=== PATIENT | female | born 1960 ===

== ENCOUNTER 2016-10-30 07:28 | Day surgery (SDC) | payer OTHER ==
[2016-10-30 07:51] VITALS: BMI 24.5
[2016-10-30] MEDS ORDERED: ePHEDrine 50 mg/ml Inj ONE (08:50)
[2016-10-30] MEDS ORDERED: Propofol 10 mg/ml Inj (20 ML) ONE ×2 (08:50→08:57)
[2016-10-30 09:23] VITALS: TEMP 97.8
[2016-10-30 10:12] VITALS: RESP 14
[2016-10-30 10:21] VITALS: BP 121/84; PULSE 60; O2SAT 99
== END 2016-10-30 10:15 | disposition home or self-care (01) ==
LOC: C.ENDO 07:28
PROVIDERS: ATTEND Internal Medicine Gastroenterology
DX: Z12.11 Encounter for screening for malignant neoplasm of colon (principal)
CPT/HCPCS: 45378; 84703; J2704

== ENCOUNTER 2018-07-29 12:31 | Outpatient (CLI) | payer OTHER | END 2018-07-29 12:32 | disposition home or self-care (01) | LOC: C.PAT 12:31 | DX: D25.9 Leiomyoma of uterus, unspecified (principal) ==

== ENCOUNTER 2018-07-30 06:23 | Day surgery (SDC) | payer OTHER ==
[2018-07-29 11:08] VITALS: BMI 25.8
[2018-07-30] MEDS ORDERED: Midazolam 2 MG/2 ML VIAL ONE (07:37)
[2018-07-30] MEDS ORDERED: Propofol 10 mg/ml Inj (20 ML) ONE (07:37)
[2018-07-30] MEDS ORDERED: ceFOXitin IV 1 gm/100 ml in NS 2 GM/200 ML BAG ONE (07:45)
[2018-07-30] MEDS ORDERED: HYDROmorphone 0.5 mg/0.5 ml ISec IVP PRN (08:11)
[2018-07-30 09:48] VITALS: BP 128/76; PULSE 64; RESP 20; TEMP 96.8; O2SAT 99
--- NOTE | 2018-07-30 19:25 | OP ---
PROCEDURE DATE: 07/30/2018 PREOPERATIVE DIAGNOSES: Fibroid uterus, postmenopausal bleeding, endometrial polyp. POSTOPERATIVE DIAGNOSES: Fibroid uterus, postmenopausal bleeding, endometrial polyp. PROCEDURES: Hysteroscopy, hysteroscopic myomectomy, dilatation and curettage of the uterus. FINDINGS: A 1-cm right uterine wall endometrial polyp/myoma. The remainder of the endometrial cavity is atrophic. There are some filmy adhesions in the endocervical canal, which were lysed. SURGEON: Sonia Pope MD. ANESTHESIA: General. ESTIMATED BLOOD LOSS: Less than 1 mL. COMPLICATIONS: Nil. INDICATION FOR PROCEDURE: After the risks, benefits, and alternatives of the planned procedures including but not limited to infection, hemorrhage, deep vein thrombosis, atelectasis, pneumonia, pulmonary embolism, damage to the bladder, damage to the ureter, renal insufficiency, renal failure, wound infection, wound dehiscence, incisional hernia, keloid formation, damage to large and small intestines, damage to inferior vena cava and aorta requiring extensive repair, anesthesia complications, electrolyte imbalance, possibility of , fluid overload, cerebral edema, embolism, and other complications that were discussed but are not listed above had been explained to the patient and all her questions answered, informed consent was obtained and risk of recurrence was also discussed with the patient. DESCRIPTION OF PROCEDURE: The patient was taken to the operating room in a stable condition. Under a suitable level of general anesthesia, she was prepped and draped in a sterile fashion after having been placed in a dorsal lithotomy position. Bladder was emptied by straight catheterization. Examination under anesthesia revealed a normal size uterus, anteverted with no adnexal masses. A weighted speculum was inserted into the vagina. The anterior lip of the cervix was grasped using a single-tooth tenaculum. An Endocervical curettage was performed and scant tissue was obtained. The cervix was dilated to a #16 Hanks dilator. A hysteroscope was inserted into the uterus. Adhesions in the endocervical canal were lysed bluntly. The hysteroscope was advanced into the endometrial cavity and a 1 cm right uterine wall endometrial submucosal myoma/polyp was resected up to the level of the endometrium with good hemostasis. The hysteroscope was then removed and endometrial curettage was performed. Scant tissue was obtained. The patient was then transferred to the recovery room in a stable condition. Pad and instrument counts were correct x2. There were no complications. Sonia Pope MD
== END 2018-07-30 10:04 | disposition home or self-care (01) ==
LOC: C.SDS 06:23
PROVIDERS: ATTEND Obstetrics & Gynecology Reproductive Endocrinology
DX: D25.0 Submucous leiomyoma of uterus (principal); N84.0 Polyp of corpus uteri
CPT/HCPCS: 58561; 88305; C2615; J2250; J2704; J3010

== ENCOUNTER 2018-08-05 14:01 | Outpatient (CLI) | payer OTHER | END 2018-08-05 14:02 | disposition home or self-care (01) | LOC: C.USIC 14:01 | DX: E03.9 Hypothyroidism, unspecified (principal) ==

== ENCOUNTER 2018-09-09 11:22 | Outpatient (CLI) | payer OTHER | END 2018-09-30 09:34 | disposition home or self-care (01) | LOC: C.NUCMED 11:22 | DX: E03.9 Hypothyroidism, unspecified (principal) ==